=== PATIENT | male | born 1975 | race Caucasian/White ===

== ENCOUNTER → 2018-01-22 | Outpatient (CLI) | payer OTHER ==
--- NOTE | 2018-01-22 09:14 | Diagnostic Imaging Report ---
PROCEDURE: MRI right joint lower extremity without contrast. INDICATION: Lateral right knee pain intermittently x1 year but increasing in severity. No known injury. TECHNIQUE: Multiplanar and multisequence noncontrast MR imaging was performed of the right knee. COMPARISON: None FINDINGS: The anterior and posterior cruciate ligaments are intact. Obliquely oriented signal abnormality about the posterior horn medial meniscus extends to the inferior surface compatible with a nondisplaced meniscal tear. The lateral meniscus appearing to be intact. The collateral ligaments are intact. Joint spaces are maintained. There is, however, areas of altered signal intensity within the articular cartilage about the lateral tibial plateau. Additionally, there is rather prominent area of edema in the subcortical region about the central, weightbearing portion of the lateral tibial plateau. No depression or evidence for fracture line. Quadriceps and patellar tendon intact. Patellar cartilage unremarkable. IMPRESSION: 1. Nondisplaced tear of the posterior horn medial meniscus. 2. Rather prominent area of abnormal signal intensity, perhaps edema and/or contusion about the of central, weightbearing portion of the lateral tibial plateau. There is what appears to be a cleft-like defect and irregularity about the articular cartilage in this region as well. Dictated by: Dictated on workstation # [id number]
== END ==
LOC: RAD 07:53
PROVIDERS: ATTEND Orthopaedic Surgery
DX: S83.241A Other tear of medial meniscus, current injury, right knee, initial encounter (principal)
CPT/HCPCS: 73721

== ENCOUNTER 2023-07-28 21:46 | Observation (INO) | payer BC ==
[~2023-07-28] VITALS: Ht 180 cm; Wt 84.7 kg
[2023-07-28] MEDS ORDERED: KETOROLAC INJ 30 MG/ML VIAL IVP STA (21:49)
[2023-07-28 22:05] LABS: BASOPHILS % (AUTO) 1 % (0-10); EOSINOPHILS # (AUTO) 0.2 10^3/uL (0.0-0.3); EOSINOPHILS % (AUTO) 3 % (0-10); HEMATOCRIT 43 % (40-54); HEMOGLOBIN 15.1 g/dL (13.3-17.7); LYMPHOCYTES # (AUTO) 2.6 10^3/uL (1.0-4.0); LYMPHOCYTES % (AUTO) 38 % (12-44); MEAN CORPUSCULAR HEMOGLOBIN 32 pg (25-34); MEAN CORPUSCULAR HGB CONC 35 g/dL (32-36); MEAN CORPUSCULAR VOLUME 91 fL (80-99); MEAN PLATELET VOLUME 9.1 fL (9.0-12.2); MONOCYTES # (AUTO) 0.7 10^3/uL (0.0-1.0); MONOCYTES % (AUTO) 10 % (0-12); NEUTROPHILS # (AUTO) 3.4 10^3/uL (1.8-7.8); NEUTROPHILS % (AUTO) 49 % (42-75); PLATELET COUNT 214 10^3/uL (130-400)
[2023-07-28 22:21] LABS: ALBUMIN 4.3 GM/DL (3.2-4.5); POTASSIUM 3.9 MMOL/L (3.6-5.0)
[2023-07-28 22:22] LABS: CALCIUM 9.2 MG/DL (8.5-10.1)
[2023-07-28 22:24] LABS: TOTAL PROTEIN 7.4 GM/DL (6.4-8.2)
[2023-07-28 22:25] LABS: BILIRUBIN,TOTAL 0.6 MG/DL (0.1-1.0)
[2023-07-28 22:27] LABS: CREATININE SERUM 1.07 MG/DL (0.60-1.30)
--- NOTE | 2023-07-28 22:27 | ED Lower Extremity ---
General Chief Complaint: Lower Extremity Stated Complaint: FALL BACK/LEFT HIP PAIN Nursing Triage Note: PT TO ED WITH C/O L HIP PAIN. 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 AND FELT A POP IN HIS LEFT HIP AND IS UNABLE TO STRAIGHTEN HIS LEFT HIP Source: patient History of Present Illness Date Seen by Provider: Jul 28, 2023 Time Seen by Provider: 21:47 Initial Comments PT ARRIVES VIA POV FROM HOME, NEEDS WHEELCHAIR ON ARRIVAL C/O LEFT HIP PAIN STATES HE WAS SITTING ON THE TOILET, AND WAS TWISTING TOWARDS HIS BACK TO WIPE HIMSELF AND FELT A POP IN HIS LEFT HIP--OCCURRED 20 MINUTES PRIOR TO ARRIVAL HE STATES HE IS NOT ABLE TO STRAIGHTEN HIS LEFT HIP STATES HE HAS BEEN HAVING PROBLEMS WITH THIS LEFT HIP FOR THE LAST MONTH, AND HAS BEEN TO THE CHIROPRACTOR 3 TIMES IN THE LAST MONTH FOR IT, INCLUDING TODAY--STATES THEY WERE UNABLE TO HELP TODAY, MUSCLES WERE TOO TIGHT, PER PT HE HAS NOT TAKEN ANYTHING FOR PAIN STATES SOME HIS HIS LEFT TOES FEEL A LITTLE BIT TINGLY NO BACK PAIN NO HISTORY OF SIMILAR NO PRIOR SURGERIES OR PROCEDURES ON THIS HIP NO KNOWN TRAUMA OR UNUSUAL ACTIVITY--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 Allergies and Home Medications Allergies Coded Allergies: No Known Drug Allergies (Unverified , 07/28/23) Patient Home Medication List Home Medication List Reviewed: Yes Diazepam (Valium) 5 Mg Tablet, 2.5-5 MG PO TID Prescribed by: DENNISE PAPPAS on 07/28/232257 Ketorolac Tromethamine (Ketorolac Tromethamine) 10 Mg Tablet, 10 MG PO Q6H Prescribed by: DENNISE PAPPAS on 07/28/232256 Tramadol HCl (Tramadol HCl) 50 Mg Tablet, 50 MG PO Q4H Prescribed by: DENNISE PAPPAS on 07/28/232257 Review of Systems Constitutional: no symptoms reported Musculoskeletal: see HPI Skin: no symptoms reported Psychiatric/Neurological: See HPI Past Arvoqzb-Imoors-Idwpzo Hx Patient Social History Tobacco Use?: No Substance use?: No Alcohol Use?: Yes Alcohol Frequency: Once in a while Past Medical History Surgeries: No Respiratory: No Cardiac: No Neurological: No Genitourinary: No Gastrointestinal: No Musculoskeletal: No Endocrine: No HEENT: No Cancer: No Psychosocial: No Integumentary: No Blood Disorders: No Physical Exam Vital Signs Vital Signs - First Documented 07/28/23 21:47 Temp 36.9 Pulse 82 Resp 22 B/P (MAP) 163/99 (120) Pulse Ox 96 Capillary Refill : Height, Weight, BMI Height: '" Weight: lbs. oz. kg; 26.00 BMI Method: General Appearance: WD/WN, other (PT MOANING AND WAILING AND YELLING, HOLDING LEFT KNEE TO CHEST) Hips: left hip other (LEFT HIP TENDERNESS, HOLDING LEFT HIP AND KNEE FLEXED, HOLDING LEFT KNEE TO CHEST. DISTAL MOTOR/SENSORY/VASCULAR INTACT. 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 tested, alert, oriented x 3 Skin: normal color, warm/dry Progress/Results/Core Measures Results/Orders Lab Results Laboratory Tests Test 07/28/23 21:59 Range/Units White Blood Count 7.0 4.3-11.0 10^3/uL Red Blood Count 4.71 4.30-5.52 10^6/uL Hemoglobin 15.1 13.3-17.7 g/dL Hematocrit 43 40-54 % Mean Corpuscular Volume 91 80-99 fL Mean Corpuscular Hemoglobin 32 25-34 pg Mean Corpuscular Hemoglobin Concent 35 32-36 g/dL Red Cell Distribution Width 11.7 10.0-14.5 % Platelet Count 214 130-400 10^3/uL Mean Platelet Volume 9.1 9.0-12.2 fL Immature Granulocyte % (Auto) 0 % Neutrophils (%) (Auto) 49 42-75 % Lymphocytes (%) (Auto) 38 12-44 % Monocytes (%) (Auto) 10 0-12 % Eosinophils (%) (Auto) 3 0-10 % Basophils (%) (Auto) 1 0-10 % Neutrophils # (Auto) 3.4 1.8-7.8 10^3/uL Lymphocytes # (Auto) 2.6 1.0-4.0 10^3/uL Monocytes # (Auto) 0.7 0.0-1.0 10^3/uL Eosinophils # (Auto) 0.2 0.0-0.3 10^3/uL Basophils # (Auto) 0.0 0.0-0.1 10^3/uL Immature Granulocyte # (Auto) 0.0 0.0-0.1 10^3/uL Sodium Level 138 135-145 MMOL/L Potassium Level 3.9 3.6-5.0 MMOL/L Chloride Level 102 98-107 MMOL/L Carbon Dioxide Level 22 21-32 MMOL/L Anion Gap 14 5-14 MMOL/L Blood Urea Nitrogen 16 7-18 MG/DL Creatinine 1.07 0.60-1.30 MG/DL Estimat Glomerular Filtration Rate 86 BUN/Creatinine Ratio 15 Glucose Level 108 H 70-105 MG/DL Calcium Level 9.2 8.5-10.1 MG/DL Corrected Calcium 9.0 8.5-10.1 MG/DL Total Bilirubin 0.6 0.1-1.0 MG/DL Aspartate Amino Transf (AST/SGOT) 22 5-34 U/L Alanine Aminotransferase (ALT/SGPT) 20 0-55 U/L Alkaline Phosphatase 55 40-136 U/L Total Protein 7.4 6.4-8.2 GM/DL Albumin 4.3 3.2-4.5 GM/DL My Orders Orders - DENNISE PAPPAS DO Pelvis With Left Hip 2-3 Views (07/28/23 21:49) Cbc And Automated Diff (07/28/23 21:49) Comprehensive Metabolic Panel (07/28/23 21:49) Ua Culture If Indicated (07/28/23 21:49) Ketorolac Injection (Ketorolac Injection (07/28/23 21:49) Ed Iv/Invasive Line Start (07/28/23 21:56) Fentanyl Injection (Fentanyl Injection (07/28/23 22:33) Diazepam Injection (Diazepam Injection (07/28/23 22:45) Rx-Diazepam Tablet (Rx-Valium Tablet) (07/28/23 23:02) Rx-Tramadol Hcl (Rx-Ultram) (07/28/23 23:02) Rx-Naproxen (Rx-Naprosyn) (07/28/23 23:02) Medications Given in ED Current Medications Medications Dose Ordered Sig/Minoo Route Start Time Stop Time Status Last Admin Dose Admin Diazepam 2.5 mg ONCE ONCE IVP 07/28/23 22:45 07/28/23 22:46 DC 07/28/23 22:42 2.5 MG Vital Signs/I&O 07/28/23 21:47 Temp 36.9 Pulse 82 Resp 22 B/P (MAP) 163/99 (120) Pulse Ox 96 Blood Pressure Mean: 120 Progress Progress Note : Progress Note VITALS NO ARRIVAL: TEMP 36. 9, HR 82, RR 22, BP 163/99, OT SAT 96% ON ROOM AIR GIVEN: -TORADOL--SOME TEMPORARY RELIEF -FENTANYL -VALIUM SIGNIFICANT IMPROVEMENT WITH THE ABOVE, PT IS NOW ABLE TO STRAIGHTEN LEFT LEG COMPLETELY AND HAS NORMAL ROM OF HIP NOW. MOTOR/SENSORY/VASCULAR INTACT XRAYS--NO FX OR DISLOCATION, PENDING RADIOLOGIST REVIEW DISCUSSED TEST RESULTS, ANTICIPATED COURSE, SYMPTOMATIC TREATMENT, MEDICATIONS, NEED FOR FOLLOW UP AND RETURN PRECAUTIONS Diagnostic Imaging Comments XRAYS PELVIS AND LEFT HIP--NO FX OR DISLOCATION, PENDING RADIOLOGIST REVIEW Reviewed: Reviewed by Me Departure Impression Primary Impression: LEFT HIP PAIN Additional Impression: Muscle spasm Disposition: HOME, SELF-CARE Condition: Improved Departure-Patient Inst. Decision time for Depature: 22:53 Referrals: MAIA PAZ MD (PCP) Primary Care Physician DAVIDA MALLORY MD, MICHAEL P MD Patient Instructions: Hip Pain (DC), Muscle Spasms (DC), Muscle Spasm ED, Using Heat for Pain Add. Discharge Instructions: MOIST HEAT TO AREA AT 20 MINUTE INTERVALS FOLLOW UP WITH DR. MELLO OR DR. MALLORY, ORTHOPEDIC SURGEONS, FOR FURTHER CARE--CALL IN THE MORNING TO SCHEDULE AN APPOINTMENT All discharge instructions reviewed with patient and/or family. Voiced understanding. Scripts Tramadol HCl (Tramadol HCl) 50 Mg Tablet 50 MG PO Q4H for Pain, #20 TAB Prov: DENNISE PAPPAS DO 07/28/23 Ketorolac Tromethamine (Ketorolac Tromethamine) 10 Mg Tablet 10 MG PO Q6H for Pain, #15 TAB Prov: DENNISE PAPPAS DO 07/28/23 Diazepam (Valium) 5 Mg Tablet 2.5-5 MG PO TID, #15 TAB Prov: DENNISE PAPPAS DO 07/28/23 Work/School Note: Work Release Form Date Seen in the Emergency Department: Jul 28, 2023 Restrictions: Need Release from Doctor DENNISE PAPPAS DO Jul 28, 2023 22:27
[2023-07-28] MEDS ORDERED: fentaNYL INJECTION 100 MCG/2 ML VIAL IVP STA (22:33)
[2023-07-28] MEDS ORDERED: diazePAM INJ 10 MG/2 ML syringe IVP ONE ×2 (22:45→23:30)
[2023-07-28] MEDS ORDERED: KETO10TA PO (22:57)
[2023-07-28] MEDS ORDERED: TRAM50TA3 PO (22:57)
[2023-07-28] MEDS ORDERED: DIAZ5TAB PO (22:57)
[2023-07-28] MEDS ORDERED: RX-DIAZEPAM 5 MG (VALIUM) TAB PPK#4 PO STA (23:02)
[2023-07-28] MEDS: RX-NAPROXEN (NAPROSYN) 250 MG TAB PPK#4 PO STA (23:10)
[2023-07-28] MEDS ORDERED: fentaNYL INJECTION 100 MCG/2 ML VIAL IVP ONE (23:30)
[2023-07-29] MEDS: RX-NAPROXEN (NAPROSYN) 250 MG TAB PPK#4 PO STA
[2023-07-29 00:27] VITALS: BP 129/69
[2023-07-29] MEDS ORDERED: CATHETER FLUSH 10 ML SYR IVP PRN (01:00)
[2023-07-29] MEDS ORDERED: KETOROLAC INJ 30 MG/ML VIAL IVP PRN (01:00)
[2023-07-29] MEDS ORDERED: fentaNYL INJECTION 100 MCG/2 ML VIAL IV PRN (01:00)
[2023-07-29] MEDS ORDERED: HYDROmorphone INJECTION 2 MG/ML VIAL IV PRN (01:00)
[2023-07-29] MEDS ORDERED: diazePAM INJ 10 MG/2 ML syringe IV PRN ×2 (01:00→06:30)
[2023-07-29 03:41] VITALS: BP 118/63
[2023-07-29] MEDS ORDERED: CATHETER FLUSH 10 ML SYR IVP SCH (06:00)
[2023-07-29 06:09] LABS: CLARITY,URINE CLEAR; COLOR,URINE ORANGE; PH,URINE 5.5 (5-9)
[2023-07-29 06:10] LABS: AMORPHOUS SEDIMENT,UR FEW AMOR URATES /LPF; BACTERIA,URINE NEGATIVE /HPF; BILIRUBIN,URINE 1+ (NEGATIVE); GLUCOSE, URINE (UA) TRACE (NEGATIVE); KETONES,URINE TRACE (NEGATIVE); LEUKOCYTE ESTERASE ,URINE NEGATIVE (NEGATIVE); NITRITE,URINE NEGATIVE (NEGATIVE); PROTEIN,URINE 1+ (NEGATIVE); WBC,URINE 0-2 /HPF
[2023-07-29 06:17] LABS: AMPHETAMINE SCREEN, URINE NEGATIVE (NEGATIVE); BARBITURATE SCREEN URINE NEGATIVE (NEGATIVE); CANNABINOID SCREEN, URINE NEGATIVE (NEGATIVE); COCAINE SCREEN URINE NEGATIVE (NEGATIVE); METHADONE STAT NEGATIVE (NEGATIVE); OPIATE SCREEN URINE POSITIVE (NEGATIVE); OXYCODONE STAT NEGATIVE (NEGATIVE); PROPOXYPHENE STAT NEGATIVE (NEGATIVE); TRICYCLIC ANTIDEPRESSANTS SCRE NEGATIVE (NEGATIVE)
--- NOTE | 2023-07-29 06:22 | Diagnostic Imaging Report ---
INDICATION: Left hip pain AP view pelvis and 2 views of left hip are obtained. Pelvic and obturator rings appear to be intact. Joint spaces of the hips appear normal. There is no fracture or dislocation. IMPRESSION: Unremarkable pelvis and left hip Dictated by: Dictated on workstation # [id number]
[2023-07-29 08:00] VITALS: BP 123/74
[2023-07-29] MEDS ORDERED: ESCI-2 PO (10:51)
[2023-07-29] MEDS ORDERED: OMEP-401 PO (10:51)
--- NOTE | 2023-07-29 12:06 | CONSULTATION REPORT ---
DATE OF SERVICE: 07/29/2023 REASON FOR CONSULTATION: Left hip and leg pain. 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 He has been treated with day care worker. Ultimately last evening, he presented to the emergency department because he was seated, twisted and felt and heard a pop and then had increased pain down his left leg. He reports he has had some back pain in the past and has had some pain down the leg prior to this injury. He initially improved with medications, but was ultimately admitted for pain management as the pain recurred prior to discharge. This morning, the patient reports he is having no pain in his hip as [ ] it was good in weeks. PHYSICAL EXAMINATION: Today, he has no pain with internal or external rotation of the left hip. Negative straight leg raise. Sensation is intact to his left lower extremity. No pain with knee range of motion. He has no tenderness throughout his lower extremity. IMPRESSION: Likely lumbar radiculopathy. PLAN: I explained to the patient if this continues to be symptomatic, then I recommend an MRI of his lumbar spine. Otherwise, no treatment currently. Job ID: [id number] DocumentID: [id number] Dictated Date: 07/29/2023 11:41:38 Nurse Ldr Date: 07/29/2023 12:03:00 Dictated By: LINETTE MELLO MD
[2023-07-29] MEDS ORDERED: CYCL5TAB PO (12:21)
[2023-07-29 12:32] VITALS: BP 135/79
[2023-07-29 13:50] VITALS: BP 135/79
--- NOTE | 2023-07-29 14:29 | Short Stay Summary-Hospitalist ---
History of Present Illness HPI/Chief Complaint Emerson Contreras is a 48 year old male who presented with hip pain. He reports left sided pain with shooting pain down his leg. He denies any heavy lifting. He denies trauma. Upon my exam, his pain has resolved. He says he has not felt this good in weeks. Source: patient, family Exam Limitations: no limitations Date Seen 07/29/23 Time Seen by a Provider: 12:10 Attending Physician Ruben Alvarado MD PCP Admitting Physician: Mally Whitaker DO Attending Physician: José Antonio Andrade MD Referring Physician Date of Admission Jul 28, 2023 at 23:54 Home Medications & Allergies Home Medications Reviewed patient Home Medication Reconciliation performed by pharmacy medication reconciliations milking machine technician and/or nursing. Patients Allergies have been reviewed. Allergies Allergies Coded Allergies No Known Drug Allergies (Sqcnnplgyy59/11/23) Past Yhmuxwr-Uceuvs-Mlbwnf Hx Patient Social History Tobacco Use?: No Substance use?: No Alcohol Use?: No Alcohol Frequency: Once in a while Pt feels they are or have been: No Immunizations Up To Date Date of Influenza Vaccine: Jul 14, 2023 Current Status Advance Directives: No Communicates: Verbally Primary Language: Lithuanian Preferred Spoken Language: Lithuanian Implanted or Applied Medical D: None Past Medical History Blood Disorders: No Family Medical History No Pertinent Family Hx Review of Systems Constitutional: no symptoms reported Respiratory: no symptoms reported Cardiovascular: no symptoms reported Gastrointestinal: no symptoms reported Physical Exam Physical Exam Vital Signs Vital Signs - First Documented 07/28/23 07/29/23 21:47 00:27 Temp 36.9 Pulse 82 Resp 22 B/P (MAP) 163/99 (120) Pulse Ox 96 O2 Delivery Room Air Capillary Refill : Height, Weight, BMI Height: '" Weight: lbs. oz. kg; 26.14 BMI Method: General Appearance: No Apparent Distress, WD/WN Respiratory: No Respiratory Distress Gastrointestinal: No Distended Extremity: Normal Inspection Neurologic/Psychiatric: Alert, Normal Mood/Affect Skin: Normal Color Results Results/Procedures Labs Laboratory Tests 07/28/23 21:59 Patient resulted labs reviewed. Short Stay Diagnosis Discharge Diagnosis-Short Stay Admission Diagnosis Hip pain Final Discharge Diagnosis Possible lumbar radiculopathy Conclusion Plan Left hip pain Possible lumbar radiculopathy Hip XR without acute abnormalities Improved with pain meds but recurred Ortho consulted, Dr. Payne, appreciate assistance Likely radiculopathy Symptoms resolved Follow up with Dr. Alvarado Consider MRI if symptoms return Flexeril as needed Diagnosis/Problems Diagnosis/Problems (1) Acute left lumbar radiculopathy Status: Acute (2) Left hip pain Status: Acute (3) Muscle spasm Status: Acute JOSÉ ANTONIO ANDRADE MD Jul 29, 2023 14:29
== END 2023-07-29 12:20 | disposition home or self-care (01) ==
LOC: EDUNIT# 21:46 → ER 21:49 → 4TH 23:54
PROVIDERS: ADMIT Internal Medicine; ATTEND Internal Medicine
DX: M25.552 Pain in left hip (principal); M62.838 Other muscle spasm
CPT/HCPCS: 73502; 80053; 80306; 81000; 85025; 99284; G0378; 36415